=== PATIENT | male | born 1975 | race American Indian/Alaskan Native ===

== ENCOUNTER 2024-04-02 09:31 | Emergency (ER) | payer MEDICAID, SELFPAY ==
[2024-04-02] VITALS (8 sets, daily range): BP systolic 132–152; BP diastolic 88–110; BMI 33.2
--- NOTE | 2024-04-02 10:40 | EDRN ---
Unable to get IV access and paged [facility] IV team at this time.
--- NOTE | 2024-04-02 11:05 | EDRN ---
IV [facility] CATRINA Montano in room w/ pt at this time to initiate IV access.
[2024-04-02] MEDS: TORADOL 15 MG IV ×2 (11:26→14:35)
[2024-04-02] MEDS: NSS 1000 IV (11:28)
--- NOTE | 2024-04-02 11:32 | ED.GENMED ---
History of Present Illness
General
Chief Complaint: Back Pain
Time Seen by Provider: 04/02/24 10:19
Travel History
Have you had any contact with someone who has COVID-19?: No
Do you have any symptoms of coronavirus? Fever > 100 degrees, chills, cough, shortness of breath, sore throat, loss of taste or smell, muscle aches, or headache?: No
History of Present Illness
History of Present Illness:
48-year-old male with history of hypertension presents emergency department for evaluation of right flank pain with nausea beginning yesterday. Pain does not radiate, no lower extremity radiculopathy or paresthesias. Denies any associated fevers,
chills, sweats, vomiting, dysuria, or hematuria. No past history of kidney stones.
Review of Systems
Review of Systems
Allergies reviewed?: Yes
All Other Systems: ROS reviewed and negative except as documented in HPI and ROS
Phy Exam
Physical Exam
Physical Exam:
GEN: Well appearing, NAD, WDWN
HEENT: Oral mucosa moist, no scleral icterus
Cardiac: Regular rate
Lung: No respiratory distress, no tachypnea
Abdomen: Soft, nontender, no CVA tenderness
MSK: No gross deformity or injuries
Skin: Good color, no pallor or jaundice, no rashes
Neuro: AO x3, moves all extremities freely
Psych: Calm, cooperative
Course
Orders/Labs/Results
Orders:
Orders
04/02/24 10:17
IV Insert/Care/Rem.- Treatment PRN
04/02/24 10:57
0.9% Sodium Chloride 1000 ml [Nss] 1,000 ml IV BOLUS
Ketorolac [Toradol] 15 mg IV NOW STA
04/02/24 11:21
Complete Blood Count/With Diff Urgent
Comprehensive Metabolic Panel Urgent
04/02/24 12:28
Urinalysis Reflex To Culture Urgent
Date Specimen was Collected: 04/02/24
Time Specimen was Collected: 12:21
Urine Microscopic Reflex Cult Urgent
04/02/24 12:48
CT Abd/pel Without Iv Or Oral Urgent
Comment:
Reason For Exam: R flank pain
04/02/24 14:17
HYDROmorphone [Dilaudid] 0.5 mg IV NOW STA
Ketorolac [Toradol] 15 mg IV NOW STA
Abnormal Lab Results
04/02/24 04/02/24
11:21 12:28
MCV 79.6 L fL
(80.0-94.0)
MCH 26.8 L pg
(27.0-31.0)
MPV 10.6 H fL
(7.4-10.4)
Absolute Neuts (auto) 9.0 H 10^3/uL
(1.4-6.5)
Absolute Lymphs (auto) 0.9 L 10^3/uL
(1.2-3.4)
Neutrophils % 86.9 H %
(42.2-75.2)
Lymphocytes % 8.4 L %
(20.5-51.1)
Glucose 133 H mg/dl
(70-99)
ALT 66 H U/L
(0-50)
Ur Occult Blood Reflex 3+ A
(Negative)
Urine RBC 7-10 A /HPF
(0-2)
04/02/24 11:21
04/02/24 11:21
Vital Signs
Initial and Last Documented VS:
Initial Vital Signs
Temp Pulse BP Pulse Ox
98.9 F 82 148/110 100
04/02/24 09:35 04/02/24 09:35 04/02/24 09:35 04/02/24 09:35
Last Documented Vital Signs
Temp Pulse Resp BP Pulse Ox
98.9 F 88 16 148/102 100
04/02/24 09:35 04/02/24 13:00 04/02/24 13:00 04/02/24 13:00 04/02/24 13:00
MDM/Problems Addressed
MDM/Problems Addressed:
Workup reveals a right distal ureteral stone. Patient's pain is well-controlled in the emergency department. Will discharge with supportive care. No indication for antibiotics, no concern for pyelo
*Critical Care Note
Total Time (30-74mins, 75-104mins- exclusive of procedures): Not Applicable
ED Attending Note
-
Portions of this chart may have been created with voice recognition software.� Occasional wrong word or��sound alike� substitutions may have occurred due to the inherent limitations of voice recognition software.
Discharge Plan
Departure
Patient Disposition: Home (Routine Discharge)
Date of Disposition: 04/02/24
Time of Disposition: 14:56
Patient with high blood pressure during this ER visit?: No
Discharge Problem:
Ureterolithiasis
Instructions: Kidney Stone, Adult ED
Prescriptions:
New
diclofenac sodium 75 mg tablet,delayed release (DR/EC)
75 mg PO BID Qty: 20 0RF
oxycodone 5 mg tablet
5 mg PO Q8H PRN (Reason: Pain) Qty: 10 0RF
tamsulosin [Flomax] 0.4 mg capsule
0.4 mg PO HS Qty: 10 0RF
Referrals:
NONE,* [Family Provider] -
Interventions
Interventions:
*Risk Screen - Suicide Last Done: 04/02/24 10:24
*General Assessment Last Done: 04/02/24 10:24
*Neglect/Abuse Screening Last Done: 04/02/24 10:24
ED- Fall Risk Assessment Last Done: 04/02/24 10:24
*ED COVID-19 Vaccine History Last Done: 04/02/24 09:38
ED-Musculoskeletal Assessment Last Done: 04/02/24 10:35
Discharge Date and Time
Print Language: ROMANIAN
[2024-04-02 11:47] LABS: ALT (SGPT) 66 U/L (0-50); AST (SGOT) 42 U/L (17-59); Albumin 4.6 g/dl (3.5-5.0); Alkaline Phosphatase 92 U/L (38-126); Blood Urea Nitrogen 11 mg/dl (9-20); Calcium 9.6 mg/dl (8.4-10.2); Carbon Dioxide 25 mmol/L (22-30); Chloride 106 mmol/L (98-107); Estimated Creatinine Clearance > 125 ml/min; Glucose 133 mg/dl (70-99); Potassium 3.9 mmol/L (3.5-5.1); Sodium 138 mmol/L (135-145); Total Protein 7.8 g/dl (6.3-8.2); eGFR > 60.00
[2024-04-02 12:37] LABS: Urine Albumin Trace (Neg - Trace); Urine Bilirubin Negative (Negative); Urine Character Clear (Clear); Urine Color Yellow; Urine Glucose Negative (Negative); Urine Ketone Negative (Negative); Urine Leukocyte Negative (Negative); Urine Nitrite Negative (Negative); Urine Occult Blood 3+ (Negative); Urine Urobilinogen Negative (Neg - 1+)
[2024-04-02 12:42] LABS: % Basophils 0.5 % (0-2); % Immature Granulocytes 0.4 % (0-0.5); % Lymphocytes 8.4 % (20.5-51.1); % Monocytes 3.8 % (1.7-9.3); % Neutrophils 86.9 % (42.2-75.2); Absolute Basophils 0.1 10^3/uL (0-0.2); Absolute Lymphocytes 0.9 10^3/uL (1.2-3.4); Absolute Monocytes 0.4 10^3/uL (0.1-0.6); Hematocrit 43.4 % (39.0-52.0); Hemoglobin 14.6 g/dL (13.0-18.0); Mean Corp Hgb Conc. 33.6 g/dL (33.0-37.0); Mean Corpuscular Hgb 26.8 pg (27.0-31.0); Mean Corpuscular Volume 79.6 fL (80.0-94.0); Mean Platelet Volume 10.6 fL (7.4-10.4); Nucleated Red Blood Cells % 0 % (-); Platelet Count 327 10^3/uL (130-400); Red Blood Cell Count 5.45 10^6/uL (4.70-6.10); Red Cell Dist. Width 13.4 % (11.5-14.5); White Blood Cell Count 10.3 10^3/uL (4.8-10.8)
--- NOTE | 2024-04-02 12:44 | EDRN ---
Pt states post toradol pain went down to 2/10 but now is increasing and presently 5/10. This RN TT'd Marei REYES at this time.
[2024-04-02 12:57] LABS: Urine White Cell 0-2 /HPF (0-5)
[2024-04-02] MEDS: DILAUDID 0.5 MG IV (14:35)
--- NOTE | 2024-04-02 14:59 | EDRN ---
Pt was administered a strainer for urine and spec cup w/ instructions on its use and verbally repeated it back.
== END 2024-04-02 15:20 | disposition home or self-care (01) ==
LOC: EMR 09:31
PROVIDERS: Physician Assistant; EMERGENCY PHYSICIAN Emergency Medicine
DX: N13.2 Hydronephrosis with renal and ureteral calculous obstruction (principal)
CPT/HCPCS: 99284; 96374; 96375; 96361; 96376; 74176; 80053; 81003; 81015; 85025